=== PATIENT | male | born 1985 | race Caucasian/White ===

== ENCOUNTER 2019-11-14 02:16 | Emergency (ER) | payer OTHER ==
[~2019-11-14] VITALS: Ht 182.9 cm; Wt 92.6 kg
[2019-11-14 03:22] LABS: BASO % 0.4 % (0.0-1.0); EOS % 0.4 % (0.0-3.0); HEMATOCRIT 47.4 % (42.0-52.0); HEMOGLOBIN 15.7 g/dl (13.5-17.5); LYMPH # 1.2 10^3/uL (1.5-5.0); LYMPH % 10.5 % (24.0-44.0); MEAN CORPUSCULAR HGB CONC 33.1 g/dl (32.0-36.5); MEAN CORPUSCULAR VOLUME 84.6 fl (80.0-96.0); MONO # 0.5 10^3/uL (0.0-0.8); MONO % 4.7 % (0.0-5.0); NEUTROPHILS # 9.5 10^3/uL (1.5-8.5); NEUTROPHILS % 83.6 % (36.0-66.0); PLATELET COUNT, AUTOMATED 211 10^3/uL (150-450); WHITE BLOOD COUNT 11.4 10^3/uL (4.0-10.0)
[2019-11-14] MEDS ORDERED: GI COCKTAIL 50ML BTL(HYOSCYAMINE/MAALOX/LIDOCAINE VISCOUS)(1:3:1) PO ONE (03:45)
[2019-11-14 03:58] LABS: ALBUMIN 4.2 GM/DL (3.2-5.2); ALT/SGPT 91 U/L (12-78); BILIRUBIN,DIRECT 0.2 MG/DL (0.0-0.2); BILIRUBIN,TOTAL 0.4 MG/DL (0.2-1.0); BLOOD UREA NITROGEN 9 MG/DL (7-18); CALCIUM LEVEL 8.8 MG/DL (8.5-10.1); CARBON DIOXIDE LEVEL 30 MEQ/L (21-32); CHLORIDE LEVEL 106 MEQ/L (98-107); CREATININE FOR GFR 0.97 MG/DL (0.70-1.30); GLOMERULAR FILTRATION RATE > 60.0 (>60); GLUCOSE, FASTING 103 MG/DL (70-100); LIPASE 107 U/L (73-393); SODIUM LEVEL 139 MEQ/L (136-145); TOTAL PROTEIN 8.7 GM/DL (6.4-8.2)
[2019-11-14] MEDS ORDERED: ISOVUE-370 76% 100ML VIAL As Ordered ONE (04:25)
[2019-11-14] MEDS ORDERED: KETOROLAC 30 MG/ML 1ML VIAL IV ONE (04:30)
--- NOTE | 2019-11-14 04:50 | REPVR ---
PROCEDURE INFORMATION: Exam: CT Abdomen And Pelvis With Contrast Exam date and time: 11/14/2019 4:26 AM Age: 34 years old Clinical indication: Abdominal pain; Epigastric; Additional info: Epigastric pain TECHNIQUE: Imaging protocol: Computed tomography of the abdomen and pelvis with intravenous contrast. Radiation optimization: All CT scans at this facility use at least one of these dose optimization techniques: automated exposure control; mA and/or kV adjustment per patient size (includes targeted exams where dose is matched to clinical indication); or iterative reconstruction. Contrast material: ISO; Contrast volume: 100 ml; Contrast route: INTRAVENOUS (IV); COMPARISON: LIVER US 12/15/2014 7:57 AM FINDINGS: Liver: The liver attenuation is 65 Hounsfield units and the spleen is 111 Hounsfield units. Gallbladder and bile ducts: Normal. No calcified stones. No ductal dilation. Pancreas: Normal. No ductal dilation. Spleen: The spleen measures 13.0 cm. Adrenals: Normal. No mass. Kidneys and ureters: Normal. No hydronephrosis. Stomach and bowel: Mild stool and gas throughout much of the colon. Nondilated fluid containing small bowel with air-fluid levels is noted which is nonspecific and may reflect minimal ileus or possibly enteritis. Appendix: There are no changes of appendicitis. A normal appendix is not seen. Intraperitoneal space: Unremarkable. No free air. No significant fluid collection. Vasculature: Unremarkable. No abdominal aortic aneurysm. Lymph nodes: Unremarkable. No enlarged lymph nodes. Bladder: Unremarkable as visualized. Reproductive: Unremarkable as visualized. Bones/joints: Unremarkable. No acute fracture. Soft tissues: Minimal fat filled umbilical hernia. IMPRESSION: 1. Fatty infiltration of the liver. 2. Borderline splenomegaly. 3. Nondilated small bowel with some air-fluid levels which is nonspecific although may reflect minimal ileus or possibly enteritis. Electronically signed by: Tien Yu On 11/14/2019 04:49:42 AM
[2019-11-14 05:36] VITALS: BP 125/67
--- NOTE | 2019-12-05 13:38 | ECGEPIP ---
[facility] - ED Test Date: 2019-11-14 Pat Name: ROBIN BERNARDO Department: Room: - Gender: Male [place] Worker: : 1985 Requested By: NOHEMI Villalobos Order Number: [id number] Reading MD: Christina Smith Measurements Intervals [place] Rate: 84 P: 33 OR: 149 QRS: 42 QRSD: 85 T: 42 QT: 333 QTc: 394 Interpretive Statements SINUS RHYTHM EARLY REPOLARIZATION BORDERLINE ECG CLINICAL CORRELATE SEE SCANNED DOWNTIME REPORT
== END 2019-11-14 05:37 | disposition home or self-care (01) ==
LOC: M ED 02:16
DX: K52.9 Noninfective gastroenteritis and colitis, unspecified (principal); K21.9 Gastro-esophageal reflux disease without esophagitis
CPT/HCPCS: 36415; 74177; 80048; 80076; 83690; 85025; 93005; 96374; 99284; J1885; Q9967

== ENCOUNTER → 2021-11-26 | Outpatient (REF) | payer OTHER ==
[2021-11-26 18:04] LABS: HEPATITIS B CORE ANTIBODY IGM NEGATIVE (NEGATIVE); HEPATITIS B SURFACE ANTIGEN NEGATIVE (NEGATIVE); HEPATITIS C VIRUS ABY INDEX < 0.0 INDEX (<0.8)
[2021-11-30 16:07] LABS: EBV VIRAL CAPSID AG IgM <36.0 U/mL (0.0-35.9)
== END ==
LOC: M LAB REF 16:12
PROVIDERS: ATTEND Physician Assistant Medical
DX: K76.0 Fatty (change of) liver, not elsewhere classified (principal); R74.01 Elevation of levels of liver transaminase levels

== ENCOUNTER → 2022-11-15 | Outpatient (REF) | payer OTHER ==
[2022-11-15 17:05] LABS: FOLATE > 24.0 NG/ML (>5.4)
[2022-11-15 17:06] LABS: VITAMIN B12 LEVEL 409 PG/ML (211-911)
== END ==
LOC: M LAB REF 16:07
PROVIDERS: ATTEND Student in an Organized Health Care Education/Training Program
DX: R41.3 Other amnesia (principal)

== ENCOUNTER 2023-01-06 18:04 | Emergency (ER) | payer OTHER ==
[~2023-01-06] VITALS: Ht 182.9 cm; Wt 90.9 kg
[2023-01-06] MEDS ORDERED: CLOM50TA9 PO (18:24)
[2023-01-06 20:54] VITALS: BP 156/93; TEMP 98.8; O2SAT 99
[2023-01-06] MEDS ORDERED: CEPHALEXIN 500 MG CAP PO ONE (22:05)
[2023-01-06] MEDS ORDERED: CEPH500C PO (22:08)
[2023-01-06] MEDS ORDERED: IBUP-1022 PO (22:08)
== END 2023-01-06 22:51 | disposition home or self-care (01) ==
LOC: M ED 18:04
DX: S09.90XA Unspecified injury of head, initial encounter (principal); S00.83XA Contusion of other part of head, initial encounter; W01.198A Fall on same level from slipping, tripping and stumbling with subsequent striking against other object, initial encounter; Y92.009 Unspecified place in unspecified non-institutional (private) residence as the place of occurrence of the external cause

== ENCOUNTER → 2023-01-18 | Outpatient (CLI) | payer OTHER ==
[~2023-01-18] MED LIST: CEPH500C PO; CLOM50TA9 PO; IBUP-1022 PO
== END ==
LOC: M SLEEP 20:00
PROVIDERS: ATTEND Nurse Practitioner Family
DX: G47.33 Obstructive sleep apnea (adult) (pediatric) (principal)

== ENCOUNTER → 2023-02-23 | Outpatient (CLI) | payer OTHER | LOC: M SLEEP 20:00 | PROVIDERS: ATTEND Nurse Practitioner Family | DX: G47.33 Obstructive sleep apnea (adult) (pediatric) (principal) ==

== ENCOUNTER 2023-07-07 19:04 | Emergency (ER) | payer OTHER ==
[~2023-07-07] VITALS: Ht 182.9 cm; Wt 98.8 kg
[2023-07-07] MEDS ORDERED: KETO10TAB PO (19:10)
[2023-07-07 19:41] LABS: BASO # 0.1 10^3/uL (0.0-0.2); BASO % 0.7 % (0.0-1.0); EOS # 0.1 10^3/uL (0.0-0.5); EOS % 0.7 % (0.0-3.0); HEMATOCRIT 43.6 % (42.0-52.0); HEMOGLOBIN 14.7 g/dl (13.5-17.5); LYMPH # 2.4 10^3/uL (1.5-5.0); LYMPH % 35.2 % (24.0-44.0); MEAN CORPUSCULAR HGB CONC 33.7 g/dl (32.0-36.5); MONO # 0.7 10^3/uL (0.0-0.8); MONO % 9.9 % (2.0-8.0); NEUTROPHILS # 3.7 10^3/uL (1.5-8.5); NEUTROPHILS % 53.1 % (36.0-66.0); PLATELET COUNT, AUTOMATED 178 10^3/uL (150-450); WHITE BLOOD COUNT 6.9 10^3/uL (4.0-10.0)
[2023-07-07 19:53] LABS: INR 1.06; PROTHROMBIN TIME 13.4 SECONDS (12.5-14.5)
[2023-07-07 20:43] LABS: CK-MB VALUE MASS < 1.0 NG/ML (<3.6)
[2023-07-07 20:47] LABS: ALBUMIN 3.9 G/DL (3.2-5.2); ALKALINE PHOSPHATASE 90 U/L (46-116); ALT/SGPT 168 U/L (7.0-40); AST/SGOT 132 U/L (<34); BILIRUBIN,DIRECT 0.1 MG/DL (<0.4); BILIRUBIN,TOTAL 0.4 MG/DL (0.3-1.2); BLOOD UREA NITROGEN 9 MG/DL (9-23); CARBON DIOXIDE LEVEL 26 MMOL/L (20-31); CHLORIDE LEVEL 105 MMOL/L (98-107); CPK CREATINE PHOSPHOKINASE 281 U/L (46-171); CREATININE FOR GFR 1.02 MG/DL (0.70-1.30); GLOMERULAR FILTRATION RATE > 60.0 (>60); GLUCOSE, FASTING 90 MG/DL (60-100); LIPASE 38 U/L (12-53); MB/CK RELATIVE INDEX 0.35 (< OR =4); SODIUM LEVEL 141 MMOL/L (136-145); TOTAL PROTEIN 7.2 G/DL (5.7-8.2)
[2023-07-07 21:16] LABS: CK-MB VALUE MASS 1.1 NG/ML (<3.6)
[2023-07-07 21:20] LABS: MB/CK RELATIVE INDEX 0.4 (< OR =4)
[2023-07-07] MEDS ORDERED: ISOVUE-370 76% 100ML VIAL As Ordered ONE (23:02)
[2023-07-07] MEDS: NS 1,000 ML IV ONE (23:29)
[2023-07-07] MEDS: KETOROLAC 30 MG/ML 1ML VIAL IV ONE (23:30)
[2023-07-08] MEDS ORDERED: KETO10TAB PO (01:11)
[2023-07-08] MEDS ORDERED: NAPR-837 PO (01:12)
[2023-07-08 01:20] VITALS: BP 138/87; TEMP 98.1; O2SAT 95
== END 2023-07-08 01:45 | disposition home or self-care (01) ==
LOC: M ED 19:04
DX: R07.9 Chest pain, unspecified (principal); I45.10 Unspecified right bundle-branch block; Z79.899 Other long term (current) drug therapy
CPT/HCPCS: 71045; 71275; 80048; 80076; 82550; 82553; 83690; 84484; 85025; 85610; 93005; 96361; 96374; 99284; J1885; Q9967

== ENCOUNTER → 2023-08-01 | Outpatient (REF) | payer OTHER ==
[~2023-08-01] MED LIST changes: +KETO10TAB PO; +NAPR-837 PO
== END ==
LOC: M LAB REF 16:33
PROVIDERS: ATTEND Physician Assistant Medical
DX: D35.2 Benign neoplasm of pituitary gland (principal)

== ENCOUNTER → 2024-01-10 | Outpatient (CLI) | payer OTHER | LOC: M WHC 11:00 | PROVIDERS: ATTEND Nurse Practitioner Family | DX: N62 Hypertrophy of breast (principal) | CPT/HCPCS: 77066; G0279 ==

== ENCOUNTER → 2024-07-15 | Outpatient (CLI) | payer OTHER | LOC: M WUC 13:56 | PROVIDERS: ATTEND Physician Assistant | DX: M79.672 Pain in left foot (principal) ==

== ENCOUNTER → 2025-02-25 | Outpatient (REF) | payer OTHER ==
[~2025-02-25] MED LIST changes: +CLOM50TA31 PO; -CLOM50TA9 PO; -IBUP-1022 PO; +IBUP600T42 PO
== END ==
LOC: M LAB REF 12:17
PROVIDERS: ATTEND Physician Assistant Medical
DX: D35.2 Benign neoplasm of pituitary gland (principal); R53.83 Other fatigue; R68.82 Decreased libido

== ENCOUNTER → 2025-03-26 | Outpatient (CLI) | payer OTHER ==
[~2025-03-26] MED LIST changes: +DOXY200C
== END ==
LOC: M RAD 07:41
PROVIDERS: ATTEND Physician Assistant Medical
DX: K76.0 Fatty (change of) liver, not elsewhere classified (principal)

== ENCOUNTER → 2025-03-26 | Outpatient (CLI) | payer OTHER | LOC: M EKG 07:46 | PROVIDERS: ATTEND Anesthesiology | DX: Z01.818 Encounter for other preprocedural examination (principal); I45.10 Unspecified right bundle-branch block ==